=== PATIENT | male | born 1965 | race Hispanic/Latino ===

== ENCOUNTER 2018-03-06 17:35 | Emergency (ER) | payer BC, OTHER ==
[2018-03-06 18:19] VITALS: TEMP 98.4
[2018-03-06] MEDS ORDERED: Oxycodone/Acetaminophen 5/325 mg Tab PO STA (18:38)
--- NOTE | 2018-03-06 18:40 | ED PDOC ---
Lower Extremity Pain/Injury Chief Complaint (Provider): right toe pain History Per: Patient (52 y/o male h/o Gout here with right toe pain worsening after exercising 1 week ago. States he has been taking allopurinol and started indomethacin today at noon without improvement.) <Jennifer Steele - Last Filed: 03/06/18 19:22> <Luis Ramachandran - Last Filed: 03/06/18 21:46> Time Seen by Provider: 03/06/18 18:39 Chief Complaint (Nursing): Lower Extremity Problem/Injury Past Medical History Reviewed: Historical Data, Nursing Documentation, Vital Signs Vital Signs: Last Vital Signs Temp 98.4 F 03/06/18 18:12 Pulse 70 03/06/18 18:12 Resp 18 03/06/18 18:12 BP 206/114 H 03/06/18 18:12 Pulse Ox 99 03/06/18 18:12 - Medical History PMH: Asthma, HTN, Hypercholesterolemia - Family History Family History: States: CAD <Jennifer Steele - Last Filed: 03/06/18 19:22> Vital Signs: Last Vital Signs Temp 98.4 F 03/06/18 18:12 Pulse 70 03/06/18 18:12 Resp 18 03/06/18 18:12 BP 206/114 H 03/06/18 18:12 Pulse Ox 99 03/06/18 19:23 <Luis Ramachandran - Last Filed: 03/06/18 21:46> - Home Medications Home Medications: Ambulatory Orders Medication Instructions Recorded Albuterol Sulfate [Proair Hfa] 0.09 mg IH Q6H PRN #2 inh 04/27/15 Oseltamivir Phosphate [Tamiflu] 75 mg PO BID 5 Days capsule 04/27/15 Prednisone 20 mg PO BID 5 Days tablet 04/27/15 Indomethacin 50 mg PO TID #30 capsule 03/06/18 - Allergies Allergies/Adverse Reactions: Allergies Allergy/AdvReac Type Severity Reaction Status Date / Time No Known Allergies Allergy Verified 04/27/15 13:17 Review of Systems ROS Statement: Except As Marked, All Systems Reviewed And Found Negative <Jennifer Steele - Last Filed: 03/06/18 19:22> Physical Exam - Reviewed Nursing Documentation Reviewed: Yes Vital Signs Reviewed: Yes - Physical Exam Appears: Positive for: Well, Non-toxic, No Acute Distress Head Exam: Positive for: ATRAUMATIC, NORMAL INSPECTION, NORMOCEPHALIC Skin: Positive for: Normal Color, Warm, DRY Eye Exam: Positive for: EOMI, Normal appearance, PERRL ENT: Positive for: Normal ENT Inspection Neck: Positive for: Normal, Painless ROM Cardiovascular/Chest: Positive for: Regular Rate, Rhythm Respiratory: Positive for: CNT, Normal Breath Sounds Gastrointestinal/Abdominal: Positive for: Normal Exam, Soft Back: Positive for: Normal Inspection Extremity: Positive for: Normal ROM, Tenderness, Swelling (right MCP with moderate erythema noted.) Neurologic/Psych: Positive for: Alert, Oriented <Jennifer Steele - Last Filed: 03/06/18 19:22> - Laboratory Results Result Diagrams: 03/06/18 18:51 - ECG O2 Sat by Pulse Oximetry: 99 - Progress ED Course And Treament: XRY OF FOOT: NO FX PERCOCET 5/325 MG X 1 DOSE <Jennifer Steele - Last Filed: 03/06/18 19:22> - Laboratory Results Result Diagrams: 03/06/18 18:51 03/06/18 18:51 <Luis Ramachandran - Last Filed: 03/06/18 21:46> Medical Decision Making Medical Decision Making: Podiatry Resident indicated that aspiration was indicated and patient did not wish to undertake this procedure; pt will be discharged with a referral to Dr Chaudhry office and a rx for indomethicin; <Luis Ramachandran - Last Filed: 03/06/18 21:46> Disposition - Patient ED Disposition Is Patient to be Admitted: Transfer of Care - Disposition Disposition: Transfer of Care Disposition Time: 20:00 Patient Signed Over To: Luis Ramachandran Handoff Comments: PENDING PODIATRY EVAL <Jennifer tSeele - Last Filed: 03/06/18 19:22> - Patient ED Disposition Is Patient to be Admitted: No Discussed With : Devyn Chaudhry Doctor Will See Patient In The: Office Counseled Patient/Family Regarding: Studies Performed, Diagnosis, Need For Followup, Rx Given - Disposition Disposition: Routine/Home Disposition Time: 21:43 <Luis Ramachandran - Last Filed: 03/06/18 21:46> - Clinical Impression Clinical Impression: Foot pain, right, Elevated blood pressure reading - Disposition Referrals: Devyn Chaudhry DPM [Medical Doctor] - Condition: STABLE Additional Instructions: Follow up with Dr Chaudhry as indicated above in the next 2-3 days Prescriptions: Indomethacin 50 mg PO TID #30 capsule Instructions: Hypertension (ED) Forms: [facility] (Ch[place]an)
[2018-03-06] MEDS ORDERED: Oxycodone/Acetaminophen 5/325 mg Tab ONE (18:52)
[2018-03-06 18:55] LABS: BASO % 0.7 % (0.0-2.0); EOS # 0.2 K/uL (0.0-0.7); EOS % 2.2 % (0.0-4.0); HEMOGLOBIN 13.5 g/dL (12.0-18.0); LYMPH # 2.3 K/uL (1.0-4.3); LYMPH % 31.8 % (20.0-40.0); MEAN CELL VOLUME 90.1 fl (80.0-94.0); MEAN CORPUSCULAR HEMOGLOBIN 31.3 pg (27.0-31.0); MEAN CORPUSCULAR HGB CONC 34.8 g/dL (33.0-37.0); MEAN PLATELET VOLUME 8.5 fl (7.2-11.7); MONO # 0.7 K/uL (0.0-0.8); MONO % 9.2 % (0.0-10.0); NEUT # 4.1 K/uL (1.8-7.0); NEUT % 56.1 % (50.0-75.0); RBC 4.31 Mil/uL (4.40-5.90); WHITE BLOOD COUNT 7.2 K/uL (4.8-10.8)
[2018-03-06 19:35] LABS: BLOOD UREA NITROGEN 18 mg/dl (9-20); CALCIUM 9.1 mg/dL (8.4-10.2); GFR NON-AFRICAN AMERICAN > 60; URIC ACID 4.6 mg/Dl (3.5-8.5)
[2018-03-06 21:56] VITALS: BP 155/110; PULSE 61; RESP 14; O2SAT 98
--- NOTE | 2018-03-07 15:30 | RAD ---
Date of service: PROCEDURE: Right Foot Radiographs. HISTORY: foot pain COMPARISON: None. FINDINGS: BONES: No evidence of acute displaced fracture nor dislocation. Small posterior and plantar calcaneal enthesophytes former slightly larger than latter JOINTS: Moderate hallux valgus deformity with DJD 1st MTP joint and fairly significant overlying medial and dorsal soft tissue swelling... Multi articular degenerative osteoarthritis.. There also appears to be a very slight lateral subluxation of the distal phalanx with respect to the proximal phalanx 5th toe SOFT TISSUES: As above. No radiopaque foreign bodies. OTHER FINDINGS: None. IMPRESSION: Moderate hallux valgus deformity with DJD 1st MTP joint and fairly significant overlying soft tissue swelling as.
--- NOTE | 2018-03-07 18:31 | CP.PCM.CON ---
History of Present Illness - History of Present Illness History of Present Illness: Podiatry Consult Note- Dr. Chaudhry 52 year old male with PMH of HTN and gout seen and evaluated in the ED for right foot pain. Patient reports that his big toe is hot and swollen. Pain with pressure and when touched. Patient rates his pain severe. Reports that has been going on for a week. Reports inconsistently taking Indomecin for the last few days. His foot appears to be better however would get swollen after walking. Reports has been trying to move his big toe as much as he can to help with the pain. Reports no relief when doing so. Patient also mentions that during the holiday, he has consume more food and drinks. Also reports having gout to left 3rd toe with increase in soft tissue mass. Was told by a filling machine set up mechanic that it's gouty deposits. Denies nausea, fever, shortness of breath, chest pains or chills. Past Patient History - Infectious Disease Hx of Infectious Diseases: None - Past Social History Smoking Status: Never Smoked - CARDIAC Hx Hypercholesterolemia: Yes Hx Hypertension: Yes - PULMONARY Hx Asthma: Yes - PSYCHIATRIC Hx Substance Use: No - SURGICAL HISTORY Hx Surgeries: Yes Other/Comment: right hand, left ACL Meds Home Medications: Home Medication List Medication Instructions Recorded Confirmed Type Indomethacin 50 mg PO TID #30 capsule 03/06/18 Rx Allergies/Adverse Reactions: Allergies Allergy/AdvReac Type Severity Reaction Status Date / Time No Known Allergies Allergy Verified 04/27/15 13:17 Physical Exam - Constitutional Appears: Well, Non-toxic, No Acute Distress - Extremities Exam Extremities exam: Negative for: calf tenderness Additional comments: VASC: DP and PT 2/4 bilaterally, temperature gradient WNL, increase warmth to the 1st MPJ area, edema noted to medial forefoot ORTHO: moderate pain with palpation to the entire 1st hallux and MPJ, pain with 1st MPJ ROM, MM is 5/5 in all four compartments NEURO: gross and protective sensation intact DERM: increase swelling and warmth to 1st MPJ, no open lesions, no drainage, no streaking, no purulence, no odor, no abscess or fluctanance appreciated dorsum of left 3rd digit with increase in soft tissue and tophi deposits in soft tissue at the level of 3rd PIPJ, no open lesions, no pain with palpation - Neurological Exam Neurological exam: Alert, Oriented x3 Results - Vital Signs Recent Vital Signs: Last Vital Signs Temp 98.4 F 03/06/18 21:40 Pulse 61 03/06/18 21:40 Resp 14 03/06/18 21:40 BP 155/110 H 03/06/18 21:40 Pulse Ox 98 03/06/18 21:40 - Labs Result Diagrams: 03/06/18 18:51 03/06/18 18:51 Labs: Laboratory Results - last 24 hr 03/06/18 03/06/18 18:51 18:51 WBC 7.2 RBC 4.31 L Hgb 13.5 Hct 38.9 MCV 90.1 MCH 31.3 H MCHC 34.8 RDW 12.0 Plt Count 264 D MPV 8.5 Neut % (Auto) 56.1 Lymph % (Auto) 31.8 [place] % (Auto) 9.2 Eos % (Auto) 2.2 Baso % (Auto) 0.7 Neut # (Auto) 4.1 Lymph # (Auto) 2.3 [place] # (Auto) 0.7 Eos # (Auto) 0.2 Baso # (Auto) 0.0 Sodium 137 Potassium 4.1 Chloride 103 Carbon Dioxide 26 Anion Gap 12 BUN 18 Creatinine 0.9 Est GFR ( Amer) > 60 Est GFR (Non-Af Amer) > 60 Random Glucose 99 Uric Acid 4.6 Calcium 9.1 Assessment & Plan - Assessment and Plan (Free Text) Assessment: 52 year old male with PMH of HTN and gout with acute gouty exacerbation right bi g toe Plan: Patient seen and examined Discuss plan in detail with attending Dr. Chaudhry Labs, vitals, chart reviewed- afebrile, absent leukocytosis X-rays reviewed 1st MPJ to confirm suspicion of gouty 1st MPJ and rule out infectious disease, however patient refused joint aspiration Recommends Indomethacin, take as instructed Patient to follow with Dr. Chaudhry within 1 week Patient to WBAT in surgical shoe All questions/concerns addressed thank you for allowing us to participate in patient's care
== END 2018-03-06 21:50 | disposition home or self-care (01) ==
LOC: H.ER 17:35
DX: M19.071 Primary osteoarthritis, right ankle and foot (principal); I10 Essential (primary) hypertension; J45.909 Unspecified asthma, uncomplicated; Z82.49 Family history of ischemic heart disease and other diseases of the circulatory system; M10.9 Gout, unspecified

== ENCOUNTER 2018-06-18 09:06 | Inpatient (IN) | payer BC ==
[2018-06-18 09:09] VITALS: BMI 29.7
--- NOTE | 2018-06-18 09:34 | ED PDOC ---
Lower Extremity Pain/Injury Time Seen by Provider: 06/18/18 09:20 Chief Complaint (Nursing): Lower Extremity Problem/Injury Chief Complaint (Provider): Lower Extremity Problem/Injury History Per: Patient History/Exam Limitations: no limitations Onset/Duration Of Symptoms: Days (x6) Current Symptoms Are (Timing): Still Present Additional Complaint(s): Patient is a 52 y/o male with a PMHx of HTN, hypercholesterolemia, bursitis, gout, and asthma who presents to the ED for evaluation of right knee pain for the past six days. Patient complains of associated symptoms including immobility, nausea, radiation to the rest of the right leg, and night sweats. Patient states his symptoms only worsened with physical activity. Patient has been taking Advil with no relief. Patient's father, who is a cardiac surgeon, recommended temporarily taking Linezolid. PCP: None Provided Past Medical History Reviewed: Historical Data, Nursing Documentation, Vital Signs Vital Signs: Last Vital Signs Temp 98 F 06/18/18 09:07 Pulse 72 06/18/18 09:07 Resp 20 06/18/18 09:07 BP 165/105 H 06/18/18 09:07 Pulse Ox 97 06/18/18 09:07 - Medical History PMH: Asthma, HTN, Hypercholesterolemia Denies: Chronic Kidney Disease Other PMH: Bursitis and Gout - Surgical History Surgical History: No Surg Hx - Family History Family History: States: CAD - Home Medications Home Medications: Ambulatory Orders Medication Instructions Recorded Albuterol Sulfate [Proair Hfa] 0.09 mg IH Q6H PRN #2 inh 04/27/15 Albuterol HFA [Ventolin HFA 90 2 puff PO PRN PRN 06/18/18 mcg/actuation (8 g)] Allopurinol [Zyloprim] 1 tab PO DAILY 06/18/18 Omeprazole Magnesium [Prilosec Otc] 1 tab PO DAILY 06/18/18 - Allergies Allergies/Adverse Reactions: Allergies Allergy/AdvReac Type Severity Reaction Status Date / Time No Known Allergies Allergy Verified 04/27/15 13:17 Review of Systems ROS Statement: Except As Marked, All Systems Reviewed And Found Negative Constitutional: Positive for: Sweats. Negative for: Fever Gastrointestinal: Positive for: Nausea Musculoskeletal: Positive for: Leg Pain (right), Other (right knee pain) Skin: Positive for: Other (redness and swelling to right knee) Physical Exam - Reviewed Nursing Documentation Reviewed: Yes - Physical Exam Appears: Positive for: In Acute Distress (painful) Head Exam: Positive for: ATRAUMATIC, NORMAL INSPECTION, NORMOCEPHALIC Skin: Positive for: Warm Eye Exam: Positive for: EOMI, Normal appearance, PERRL Neck: Positive for: Normal, Painless ROM, Supple Cardiovascular/Chest: Positive for: Regular Rate, Rhythm. Negative for: Murmur Respiratory: Positive for: Normal Breath Sounds. Negative for: Respiratory Distress Pulses-Dorsalis Pedis (L): 2+ Pulses-Dorsalis Pedis (R): 2+ Extremity: Positive for: Capillary Refill (less than 2 seconds), Swelling (redness and warmth to right knee), Other (sensation to touch intact). Negative for: Normal ROM (limited ROM of right knee secondary to pain), Pedal Edema Neurological/Psych: Positive for: Alert, Oriented (x3) - Laboratory Results Result Diagrams: 06/18/18 10:04 06/18/18 10:04 - ECG O2 Sat by Pulse Oximetry: 97 (RA) Pulse Ox Interpretation: Normal Medical Decision Making Medical Decision Making: Time: 925 Impression: Knee Pain DDx includes but not limited to gout and septic arthritis Plan: CMP Uric Acid CBC PTT Prothrombin Time Knee 3 Views RT [Rad] Blood Culture CT Knee w/o Contrast Time: 1010 FINDINGS: BONES: No evidence of acute displaced fracture nor dislocation. JOINTS: Small medium-sized anterior superior patella enthesophyte with tiny anterior inferior patella enthesophyte formation JOINT EFFUSION: Small suprapatellar joint effusion. OTHER FINDINGS: There is also mild anterior- prepatellar soft tissue swelling IMPRESSION: No evidence of acute displaced fracture nor dislocation. Small suprapatellar joint effusion. [id number] anterior superior patella enthesophyte formation. Mild anterior-prepatellar soft tissue swelling 11:[address] Chung, recommends admission for OR. 13:[address] Chung in ED, discontinue Abx, NPO. Scribe Attestation: Documented by Gus Herrera, acting as a scribe Sravanthi Oneill MD. Provider Scribe Attestation: All medical record entries made by the Scribe were at my direction and personally dictated by me. I have reviewed the chart and agree that the record accurately reflects my personal performance of the history, physical exam, m edical decision making, and the department course for this patient. I have also personally directed, reviewed, and agree with the discharge instructions and disposition. Disposition - Clinical Impression Clinical Impression: Septic joint - Patient ED Disposition Is Patient to be Admitted: Yes - Disposition Disposition Time: 12:14 Condition: STABLE - Pt Status Changed To: Hospital Disposition Of: Inpatient - Admit Certification Admit to Inpatient:: After my assessment, the patient will require hospitalization for at least two midnights. This is because of the severity of symptoms shown, intensity of services needed, and/or the medical risk in this patient being treated as an outpatient. - POA Present On Arrival: None
--- NOTE | 2018-06-18 10:14 | RAD ---
Date of service: 06/18/2018 PROCEDURE: Right Knee Radiographs. HISTORY: Pain, swelling COMPARISON: None. TECHNIQUE: 2 views obtained. FINDINGS: BONES: No evidence of acute displaced fracture nor dislocation. JOINTS: Small medium-sized anterior superior patella enthesophyte with tiny anterior inferior patella enthesophyte formation JOINT EFFUSION: Small suprapatellar joint effusion. OTHER FINDINGS: There is also mild anterior- prepatellar soft tissue swelling IMPRESSION: No evidence of acute displaced fracture nor dislocation. Small suprapatellar joint effusion. Bzdnc-ubvltn-[id number] anterior superior patella enthesophyte formation. Mild anterior-prepatellar soft tissue swelling
[2018-06-18 10:30] LABS: ALB/GLOB RATIO 1.6 (1.0-2.1); ALBUMIN 4.5 g/dL (3.5-5.0); ALT/SGPT 49 U/L (21-72); AST/SGOT 39 U/L (17-59); BLOOD UREA NITROGEN 17 mg/dl (9-20); CALCIUM 9.2 mg/dL (8.4-10.2); GFR NON-AFRICAN AMERICAN > 60; PROTHROMBIN TIME 11.5 Seconds (9.8-13.1); URIC ACID 5.6 mg/Dl (3.5-8.5)
[2018-06-18 10:33] LABS: PARTIAL THROMBOPLASTIN TIME 31.6 Seconds (25.6-37.1)
[2018-06-18 10:36] LABS: BASO % 0.5 % (0.0-2.0); EOS # 0.2 K/uL (0.0-0.7); EOS % 2.8 % (0.0-4.0); LYMPH # 1.3 K/uL (1.0-4.3); LYMPH % 20.8 % (20.0-40.0); MEAN CORPUSCULAR HEMOGLOBIN 31.2 pg (27.0-31.0); MONO # 0.6 K/uL (0.0-0.8); MONO % 9.7 % (0.0-10.0); NEUT # 4.3 K/uL (1.8-7.0); NEUT % 66.2 % (50.0-75.0); RBC 4.5 Mil/uL (4.40-5.90); RED CELL DISTRIBUTION WIDTH 13.7 % (11.5-14.5); WHITE BLOOD COUNT 6.5 K/uL (4.8-10.8)
--- NOTE | 2018-06-18 12:26 | CP.PCM.HP ---
<Slime Hirsch - Last Filed: 06/18/18 14:43> History of Present Illness - History of Present Illness History of Present Illness: 52 yo male with history of Gout and HTN presents to [facility] with complaint of right knee swelling and pain. Started last Tuesday (7 days prior to admission), radiates down the leg. No alleviating factors. Reports it is worse with activity. Associated with one episode of NBNB vomitus on Tuesday and chills last night. Reports 2 weeks ago he jumped on his bed with both knees but did not sustain any injuries at that time. His father, a physician, prescribed him Zyvox 600mg- he reports he took a total of two pills yesterday. Denies fevers, dizziness, chest pain, shortness of breath, nausea, abdominal pain, dysuria, frequency and urgency, weakness or tingling. ROS: negative except for stated above. 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 Denies smoking history. Reports He dr inks alcohol- about 3 glasses on Tuesday and 3 glasses on Tuesday. ED: 98F; HR: 72 ; BP: 165/105; O2 saturation: 97% room air CMP: 136/ 4.1 ; 102 / 26 ; 17 /0.9 < 104 ; Total bili: 1.4 ; AST/ALT: 39/49 ; Alk Phos: 74 Uric Acid CBC: 6.5 > 14.0/40.1 < 208 PT/INR: 11.5 / 1.0 Blood Culture- pending CT Knee w/o Contrast: pending Right Knee Xray: No evidence of acute displaced fracture nor dislocation. Small suprapatellar joint effusion. Srxtu-hznnpt-yraar anterior superior patella enthesophyte formation. Mild anterior-prepatellar soft tissue swelling. Present on Admission - Present on Admission Any Indicators Present on Admission: No Past Patient History - Infectious Disease Hx of Infectious Diseases: None - Past Social History Smoking Status: Never Smoked - CARDIAC Hx Hypercholesterolemia: Yes Hx Hypertension: Yes - PULMONARY Hx Asthma: Yes - NEUROLOGICAL Hx Neurological Disorder: No - HEENT Hx HEENT Problems: No - RENAL Hx Chronic Kidney Disease: No - ENDOCRINE/METABOLIC Hx Endocrine Disorders: No - HEMATOLOGICAL/ONCOLOGICAL Hx Blood Disorders: No - INTEGUMENTARY Hx Dermatological Problems: No - MUSCULOSKELETAL/RHEUMATOLOGICAL Hx Musculoskeletal Disorders: Yes Hx Gout: Yes Other/Comment: Versait[employer] - GASTROINTESTINAL Hx Gastrointestinal Disorders: No - GENITOURINARY/GYNECOLOGICAL Hx Genitourinary Disorders: No - PSYCHIATRIC Hx Psychophysiologic Disorder: No Hx Substance Use: No - SURGICAL HISTORY Hx Surgeries: Yes Other/Comment: right hand, left ACL - ANESTHESIA Hx Anesthesia: Yes Hx Anesthesia Reactions: No Hx Malignant Hyperthermia: No Meds Allergies/Adverse Reactions: Allergies Allergy/AdvReac Type Severity Reaction Status Date / Time No Known Allergies Allergy Verified 04/27/15 13:17 Physical Exam - Constitutional Appears: Non-toxic, No Acute Distress - Eye Exam Eye Exam: Normal appearance - ENT Exam ENT Exam: Mucous Membranes Moist - Respiratory Exam Respiratory Exam: Clear to Auscultation Bilateral, NORMAL BREATHING PATTERN. absent: Accessory Muscle Use, Chest Wall Tenderness, Decreased Breath Sounds, Prolonged Expiratory Phase, Rales, Rhonchi, Wheezes, Respiratory Distress, Stridor - Cardiovascular Exam Cardiovascular Exam: REGULAR RHYTHM, +S1, +S2 - GI/Abdominal Exam GI & Abdominal Exam: Normal Bowel Sounds, Soft. absent: Diminished Bowel Sounds, Distended, Firm, Guarding, Rebound, Rigid, Tenderness - Extremities Exam Extremities exam: Positive for: joint swelling (Right knee erythematous, warm to touch and swollen; non-tender to touch), normal capillary refill, pedal pulses present (+2 dorsalis pedis and tibialis posterior pulses present bilaterally. ). Negative for: calf tenderness, pedal edema, tenderness - Back Exam Back exam: NORMAL INSPECTION - Neurological Exam Neurological exam: Alert, Oriented x3 - Psychiatric Exam Psychiatric exam: Normal Affect, Normal Mood - Skin Skin Exam: Dry, Intact, Normal Color, Warm Results - Vital Signs Recent Vital Signs: Last Vital Signs Temp 98 F 06/18/18 09:07 Pulse 72 06/18/18 09:07 Resp 20 06/18/18 09:07 BP 165/105 H 06/18/18 09:07 Pulse Ox 97 06/18/18 11:17 - Labs Result Diagrams: 06/18/18 10:04 06/18/18 10:04 Labs: Laboratory Results - last 24 hr 06/18/18 06/18/18 06/18/18 10:04 10:04 10:04 WBC 6.5 RBC 4.50 Hgb 14.0 Hct 40.1 MCV 89.0 MCH 31.2 H MCHC 35.0 RDW 13.7 Plt Count 208 MPV 9.0 Neut % (Auto) 66.2 Lymph % (Auto) 20.8 [place] % (Auto) 9.7 Eos % (Auto) 2.8 Baso % (Auto) 0.5 Neut # (Auto) 4.3 Lymph # (Auto) 1.3 [place] # (Auto) 0.6 Eos # (Auto) 0.2 Baso # (Auto) 0.0 ESR PT 11.5 INR 1.0 APTT 31.6 Sodium 136 Potassium 4.1 Chloride 102 Carbon Dioxide 26 Anion Gap 12 BUN 17 Creatinine 0.9 Est GFR ( Amer) > 60 Est GFR (Non-Af Amer) > 60 Random Glucose 104 Uric Acid 5.6 Calcium 9.2 Total Bilirubin 1.4 H AST 39 ALT 49 Alkaline Phosphatase 74 Total Protein 7.3 Albumin 4.5 Globulin 2.8 Albumin/Globulin Ratio 1.6 06/18/18 11:33 WBC RBC Hgb Hct MCV MCH MCHC RDW Plt Count MPV Neut % (Auto) Lymph % (Auto) [place] % (Auto) Eos % (Auto) Baso % (Auto) Neut # (Auto) Lymph # (Auto) [place] # (Auto) Eos # (Auto) Baso # (Auto) ESR 22 H PT INR APTT Sodium Potassium Chloride Carbon Dioxide Anion Gap BUN Creatinine Est GFR ( Amer) Est GFR (Non-Af Amer) Random Glucose Uric Acid Calcium Total Bilirubin AST ALT Alkaline Phosphatase Total Protein Albumin Globulin Albumin/Globulin Ratio Assessment & Plan (1) Swelling of right knee joint Status: Acute (2) Hypertension Status: Acute (3) DVT prophylaxis Status: Acute (4) Full code status Status: Acute - Assessment and Plan (Free Text) Assessment: 52 yo male with history of Gout and HTN presents to [facility] with complaint of right knee swelling and pain admitted to rule out septic arthritis. Plan: 1. Right knee swelling - Rule out Septic arthritis vs. Gout - Admit to Med/surg - Afebrile - no leukocytosis - Orthopedic consult - Recommendations appreciated - s/p Ceftriaxone and Vancomycin - s/p 2 doses of Zyvox 600mg PO yesterday - F/U CRP - ESR 22 2. Hypertension - continue to monitor - Norvasc 5mg 3. DVT prophylaxis SCD's 4. Full code Case d/w Dr. Mejia <Michael Mejia D - Last Filed: 06/18/18 15:23> Results - Vital Signs Recent Vital Signs: Last Vital Signs Temp 98 F 06/18/18 14:41 Pulse 72 06/18/18 14:41 Resp 20 06/18/18 14:41 BP 165/105 H 06/18/18 14:41 Pulse Ox 97 06/18/18 14:10 - Labs Result Diagrams: 06/18/18 10:04 06/18/18 10:04 Labs: Laboratory Results - last 24 hr 06/18/18 06/18/18 06/18/18 10:04 10:04 10:04 WBC 6.5 RBC 4.50 Hgb 14.0 Hct 40.1 MCV 89.0 MCH 31.2 H MCHC 35.0 RDW 13.7 Plt Count 208 MPV 9.0 Neut % (Auto) 66.2 Lymph % (Auto) 20.8 [place] % (Auto) 9.7 Eos % (Auto) 2.8 Baso % (Auto) 0.5 Neut # (Auto) 4.3 Lymph # (Auto) 1.3 [place] # (Auto) 0.6 Eos # (Auto) 0.2 Baso # (Auto) 0.0 ESR PT 11.5 INR 1.0 APTT 31.6 Sodium 136 Potassium 4.1 Chloride 102 Carbon Dioxide 26 Anion Gap 12 BUN 17 Creatinine 0.9 Est GFR ( Amer) > 60 Est GFR (Non-Af Amer) > 60 Random Glucose 104 Uric Acid 5.6 Calcium 9.2 Total Bilirubin 1.4 H AST 39 ALT 49 Alkaline Phosphatase 74 Total Protein 7.3 Albumin 4.5 Globulin 2.8 Albumin/Globulin Ratio 1.6 06/18/18 11:33 WBC RBC Hgb Hct MCV MCH MCHC RDW Plt Count MPV Neut % (Auto) Lymph % (Auto) [place] % (Auto) Eos % (Auto) Baso % (Auto) Neut # (Auto) Lymph # (Auto) [place] # (Auto) Eos # (Auto) Baso # (Auto) ESR 22 H PT INR APTT Sodium Potassium Chloride Carbon Dioxide Anion Gap BUN Creatinine Est GFR ( Amer) Est GFR (Non-Af Amer) Random Glucose Uric Acid Calcium Total Bilirubin AST ALT Alkaline Phosphatase Total Protein Albumin Globulin Albumin/Globulin Ratio Attending/Attestation - Attestation I have personally seen and examined this patient.: Yes I have fully participated in the care of the patient.: Yes I have reviewed all pertinent clinical information: Yes Notes (Text): 06/18/18 15:23 Patient seen and examined with resident. Cased discussed and agreed with assessment and plan of management.
[2018-06-18] MEDS ORDERED: Vancomycin 1 g Inj ONE (12:51)
--- NOTE | 2018-06-18 14:23 | CP.PCM.CON ---
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 Pt pre sents to ER at [facility] with marked erythema anterior aspect R knee/ Pt with tense effusion, and hx of shaking chills at home. Pr currently afebrile, but with svere poain andrestricted ROM R knee. Pt with balottable patella- - swelling not buirsal, but intraraticular Increasing pain awith ROM passive or active Right knee Past Patient History - Infectious Disease Hx of Infectious Diseases: None - Past Social History Smoking Status: Never Smoked - CARDIAC Hx Hypercholesterolemia: Yes Hx Hypertension: Yes - PULMONARY Hx Asthma: Yes - NEUROLOGICAL Hx Neurological Disorder: No - HEENT Hx HEENT Problems: No - RENAL Hx Chronic Kidney Disease: No - ENDOCRINE/METABOLIC Hx Endocrine Disorders: No - HEMATOLOGICAL/ONCOLOGICAL Hx Blood Disorders: No - INTEGUMENTARY Hx Dermatological Problems: No - MUSCULOSKELETAL/RHEUMATOLOGICAL Hx Musculoskeletal Disorders: Yes Hx Gout: Yes Other/Comment: Vers[employer] - GASTROINTESTINAL Hx Gastrointestinal Disorders: No - GENITOURINARY/GYNECOLOGICAL Hx Genitourinary Disorders: No - PSYCHIATRIC Hx Psychophysiologic Disorder: No Hx Substance Use: No - SURGICAL HISTORY Hx Surgeries: Yes Other/Comment: right hand, left ACL - ANESTHESIA Hx Anesthesia: Yes Hx Anesthesia Reactions: No Hx Malignant Hyperthermia: No Meds Allergies/Adverse Reactions: Allergies Allergy/AdvReac Type Severity Reaction Status Date / Time No Known Allergies Allergy Verified 04/27/15 13:17 - Medications Medications: Current Medications Amlodipine Besylate (Norvasc) 5 mg PO DAILY [facility] Ibuprofen (Motrin Tab) 400 mg PO Q6H PRN PRN Reason: Pain, moderate (4-7) Pantoprazole Sodium (Protonix Ec Tab) 40 mg PO DAILY [facility] Physical Exam - Additional Findings Additional findings: Physical Exam Systemic exam- HEENT - wnl chest and lungs- clear to A+P Cardiac- S1/S2 NSR / no murmurs rubs thrills abdoment- beig [place] physiologic Musculoskekltal stance/gait- defrred ROM R knee markedly restricted( only 15 degrees active motion) passive rOM painful and restricted + erythema Right knee Results - Vital Signs Recent Vital Signs: Last Vital Signs Temp 98 F 06/18/18 09:07 Pulse 72 04/28/19 09:07 Resp 20 06/18/18 09:07 BP 165/105 H 06/18/18 09:07 Pulse Ox 97 06/18/18 14:10 - Labs Result Diagrams: 06/18/18 10:04 06/18/18 10:04 Labs: Laboratory Results - last 24 hr 06/18/18 06/18/18 06/18/18 10:04 10:04 10:04 WBC 6.5 RBC 4.50 Hgb 14.0 Hct 40.1 MCV 89.0 MCH 31.2 H MCHC 35.0 RDW 13.7 Plt Count 208 MPV 9.0 Neut % (Auto) 66.2 Lymph % (Auto) 20.8 [place] % (Auto) 9.7 Eos % (Auto) 2.8 Baso % (Auto) 0.5 Neut # (Auto) 4.3 Lymph # (Auto) 1.3 [place] # (Auto) 0.6 Eos # (Auto) 0.2 Baso # (Auto) 0.0 ESR PT 11.5 INR 1.0 APTT 31.6 Sodium 136 Potassium 4.1 Chloride 102 Carbon Dioxide 26 Anion Gap 12 BUN 17 Creatinine 0.9 Est GFR ( Amer) > 60 Est GFR (Non-Af Amer) > 60 Random Glucose 104 Uric Acid 5.6 Calcium 9.2 Total Bilirubin 1.4 H AST 39 ALT 49 Alkaline Phosphatase 74 Total Protein 7.3 Albumin 4.5 Globulin 2.8 Albumin/Globulin Ratio 1.6 06/18/18 11:33 WBC RBC Hgb Hct MCV MCH MCHC RDW Plt Count MPV Neut % (Auto) Lymph % (Auto) Wil[place]ger % (Auto) Eos % (Auto) Baso % (Auto) Neut # (Auto) Lymph # (Auto) [place]ger # (Auto) Eos # (Auto) Baso # (Auto) ESR 22 H PT INR APTT Sodium Potassium Chloride Carbon Dioxide Anion Gap BUN Creatinine Est GFR ( Amer) Est GFR (Non-Af Amer) Random Glucose Uric Acid Calcium Total Bilirubin AST ALT Alkaline Phosphatase Total Protein Albumin Globulin Albumin/Globulin Ratio - Impressions Impression: Xray- + forf effusion/ + for arthritis medial/patellofemoral compartments CT scan- confirmatory Assessment & Plan - Assessment and Plan (Free Text) Assessment: A- R/O septic R knee R/O gouty arthropathy Plan: Plan- surgical arthroscopy/ overnight admission pros/cons risks and benfits of proposed treatment plan (admission/surgical arthroscopy) discussed at length with pt- possibility of mechanical failure/infection/thromoboembolic disease discussed at length --informed consent obtaine. Pt discussed treatment plan with his father who is a physician No promises or guarantees
--- NOTE | 2018-06-18 14:42 | CT ---
Date of service: 06/18/2018 PROCEDURE: CT of the right knee HISTORY: Knee edema, pain COMPARISON: Comparison made with concurrent radiographs of the right knee. TECHNIQUE: Contiguous axial images of the right knee were obtained. Coronal and sagittal reformats were generated. Radiation dose: Total exam DLP = 318.63 mGy-cm. This CT exam was performed using one or more of the following dose reduction techniques: Automated exposure control, adjustment of the mA and/or kV according to patient size, and/or use of iterative reconstruction technique. FINDINGS: BONES: No evidence of acute displaced fracture nor dislocation. The osseous structures appear intact. RIGHT HIP JOINT: Joint spaces preserved with no significant osteoarthritis. Small anterior superior patella enthesophyte. SOFT TISSUES: Small of right-sided joint effusion. There are infiltration changes within the anterior and anterolateral soft tissues of the distal femur extending to the upper proximal tibia/fibula level.. Amorphous areas of soft tissue calcifications seen adjacent to the lateral margin of the patella. IMPRESSION: No acute fractures. Small joint effusion with mild to moderate anterior and anterolateral soft tissue swelling extending from the distal femur to the proximal tibia/fibular region Amorphous areas of soft tissue calcifications seen adjacent to the lateral margin of the patella.
[2018-06-18] MEDS ORDERED: Pantoprazole 40 mg EC Tab PO ONE (15:29)
[2018-06-18] MEDS: Pantoprazole 40 mg EC Tab PO SCH (15:34)
[2018-06-18] MEDS ORDERED: Albuterol HFA 90 mcg/actuation (8 g) INH PRN (20:00)
[2018-06-19 00:07] LABS: URINE BILIRUBIN NEGATIVE (NEGATIVE); URINE BLOOD NEGATIVE (NEGATIVE); URINE CLARITY CLEAR (Clear); URINE COLOR STRAW (YELLOW); URINE GLUCOSE (UA) NEG (NEGATIVE); URINE LEUKOCYTE ESTERASE NEG Leu/uL (Negative); URINE PROTEIN NEGATIVE (NEGATIVE); URINE UROBILINOGEN 0.2-1.0 mg/dL (0.2-1.0)
[2018-06-19 06:56] LABS: BASO % 0.6 % (0.0-2.0); EOS # 0.2 K/uL (0.0-0.7); EOS % 2.8 % (0.0-4.0); LYMPH # 1.7 K/uL (1.0-4.3); LYMPH % 25.8 % (20.0-40.0); MEAN CELL VOLUME 89.8 fl (80.0-94.0); MEAN CORPUSCULAR HEMOGLOBIN 30.5 pg (27.0-31.0); MEAN PLATELET VOLUME 9.1 fl (7.2-11.7); MONO # 0.7 K/uL (0.0-0.8); NEUT % 59.8 % (50.0-75.0); NRBC % 0.1 % (0.0-0.0); RBC 4.58 Mil/uL (4.40-5.90); RED CELL DISTRIBUTION WIDTH 13.2 % (11.5-14.5); WHITE BLOOD COUNT 6.6 K/uL (4.8-10.8)
[2018-06-19 07:08] LABS: BLOOD UREA NITROGEN 17 mg/dl (9-20); CALCIUM 8.8 mg/dL (8.4-10.2); GFR NON-AFRICAN AMERICAN > 60
[2018-06-19] MEDS ORDERED: MethylPREDNISolone Depo 40 mg/ml Inj ONE (07:25)
[2018-06-19] MEDS ORDERED: Bupivacaine 0.5% Inj(30mL) ONE (07:25)
[2018-06-19] MEDS ORDERED: Lidocaine 1% Inj (20ml) ONE (07:25)
[2018-06-19] MEDS ORDERED: EPINEPHrine 1 mg/ml (1:1000) Inj ONE (07:26)
[2018-06-19] MEDS: Pantoprazole 40 mg EC Tab PO SCH (08:06)
--- NOTE | 2018-06-19 08:56 | CP.PCM.PN ---
<Slime Hirsch - Last Filed: 06/19/18 10:40> Subjective - Date & Time of Evaluation Date of Evaluation: 06/19/18 Time of Evaluation: 10:00 - Subjective Subjective: Patient seen and examined at bedside. Reports mild pain when he tried to bend the right knee. Denies chest pain, shortness of breath, nausea, abdominal pain, diarrhea. Afebrile. Patient to go for arthroscopy today with Ortho. Objective - Vital Signs/Intake and Output Vital Signs (last 24 hours): Temp Pulse Resp BP Pulse Ox 98 F 60 18 127/69 97 06/19/18 06:13 06/19/18 06:13 06/19/18 06:13 06/19/18 06:13 06/19/18 06:13 - Medications Medications: Current Medications Acetaminophen (Tylenol 325mg Tab) 325 mg PO Q6 PRN PRN Reason: Other Last Admin: 06/18/18 23:27 Dose: 325 mg Albuterol (Ventolin Hfa 90 Mcg/Actuation (8 G)) 1 puff INH RQ6 PRN PRN Reason: Shortness of Breath Allopurinol (Zyloprim) 300 mg PO DAILY [facility] Last Admin: 06/19/18 08:07 Dose: Not Given Amlodipine Besylate (Norvasc) 5 mg PO DAILY [facility] Last Admin: 06/19/18 08:07 Dose: Not Given Vancomycin HCl 1 gm/ Sodium (Chloride) 250 mls @ 166.667 mls/hr IVPB Q12 [facility]; Protocol Last Admin: 06/18/18 21:12 Dose: 166.667 mls/hr Lorazepam (Ativan) 1 mg PO HS PRN PRN Reason: Insomnia Last Admin: 06/18/18 21:11 Dose: 1 mg Pantoprazole Sodium (Protonix Ec Tab) 40 mg PO DAILY [facility] Last Admin: 06/19/18 08:06 Dose: Not Given - Labs Labs: 06/19/18 05:55 06/19/18 05:55 PT 11.5 Seconds (9.8-13.1) 06/18/18 10:04 INR 1.0 06/18/18 10:04 APTT 31.6 Seconds (25.6-37.1) 06/18/18 10:04 - Constitutional Appears: Non-toxic, No Acute Distress - Eye Exam Eye Exam: Normal appearance - ENT Exam ENT Exam: Mucous Membranes Moist - Respiratory Exam Respiratory Exam: Clear to Ausculation Bilateral, NORMAL BREATHING PATTERN. absent: Accessory Muscle Use, Chest Wall Tenderness, Decreased Breath Sounds, Prolonged Expiratory Phase, Rales, Rhonchi, Wheezes, Respiratory Distress, Stridor - Cardiovascular Exam Cardiovascular Exam: REGULAR RHYTHM, RRR, +S1, +S2 - GI/Abdominal Exam GI & Abdominal Exam: Soft, Normal Bowel Sounds. absent: Distended, Firm, Guarding, Rigid, Tenderness, Hernia, Rebound - Extremities Exam Extremities Exam: Joint Swelling (Right knee swelling. ), Normal Capillary Refill, Tenderness (Tenderness to palpation on right knee. Warm to touch. Erythematous and swollen. ). absent: Calf Tenderness, Pedal Edema - Neurological Exam Neurological Exam: Alert, Awake, Oriented x3 - Psychiatric Exam Psychiatric exam: Normal Affect, Normal Mood - Skin Skin Exam: Dry, Intact, Normal Color, Warm Assessment and Plan (1) Swelling of right knee joint Status: Acute (2) Hypertension Status: Acute (3) DVT prophylaxis Status: Acute (4) Full code status Status: Acute - Assessment and Plan (Free Text) Assessment: 52 yo male with history of Gout and HTN presents to [facility] with complaint of right knee swelling and pain admitted to rule out septic arthritis vs gout vs. trauma. Plan: 1. Right knee swelling - Rule out Septic arthritis vs. Gout vs. trauma - Orthopedic consult - Recommendations appreciated- patient for OR today. - Vancomycin day 2 and - s/p 2 doses of Zyvox 600mg PO day prior to admission - MRI: Partial tear or sprain of ACL and LCL; partial tear of distal qudraceps tendon; medial meniscal tear posterior horn; moderate suprapatellar bursa effusion and medial popliteal cyst; prominent david lateral knee soft tissue ed cosme. 2. Hypertension - continue to monitor - Norvasc 5mg 3. DVT prophylaxis SCD's 4. Full code <Kayleigh Edward - Last Filed: 06/19/18 17:42> Objective - Vital Signs/Intake and Output Vital Signs (last 24 hours): Temp Pulse Resp BP Pulse Ox 97.9 F 62 20 149/97 H 95 06/19/18 17:16 06/19/18 17:16 06/19/18 17:16 06/19/18 17:16 06/19/18 17:16 Intake and Output: 06/19/18 06/19/18 06:59 18:59 Intake Total 1000 Balance 1000 - Medications Medications: Current Medications Acetaminophen (Tylenol 325mg Tab) 650 mg PO Q4 PRN PRN Reason: Fever 101 degrees fahrenheit Albuterol (Ventolin Hfa 90 Mcg/Actuation (8 G)) 1 puff INH RQ6 PRN PRN Reason: Shortness of Breath Allopurinol (Zyloprim) 300 mg PO DAILY [facility] Last Admin: 06/19/18 08:07 Dose: Not Given Amlodipine Besylate (Norvasc) 5 mg PO DAILY [facility] Last Admin: 06/19/18 08:07 Dose: Not Given Hydromorphone HCl (Dilaudid) 0.5 mg IVP Q15MIN PRN PRN Reason: Pain, moderate (4-7) Last Admin: 06/19/18 16:15 Dose: 0.5 mg Vancomycin HCl 1 gm/ Sodium (Chloride) 250 mls @ 166.667 mls/hr IVPB Q12 [facility]; Protocol Stop: 06/20/18 10:29 Lorazepam (Ativan) 1 mg PO HS PRN PRN Reason: Insomnia Last Admin: 06/18/18 21:11 Dose: 1 mg Morphine Sulfate (Morphine) 2 mg IVP Q4 PRN PRN Reason: Pain, severe (8-10) Ondansetron HCl (Zofran Inj) 4 mg IVP ONCE PRN PRN Reason: Nausea/Vomiting Oxycodone/Acetaminophen (Percocet 5/325 Mg Tab) 2 tab PO Q4 PRN PRN Reason: Pain, moderate (4-7) Stop: 06/22/18 12:12 Pantoprazole Sodium (Protonix Ec Tab) 40 mg PO DAILY [facility] Last Admin: 06/19/18 08:06 Dose: Not Given - Labs Labs: 06/19/18 05:55 06/19/18 05:55 PT 11.5 Seconds (9.8-13.1) 06/18/18 10:04 INR 1.0 06/18/18 10:04 APTT 31.6 Seconds (25.6-37.1) 06/18/18 10:04 Attending/Attestation - Attestation I have personally seen and examined this patient.: Yes I have fully participated in the care of the patient.: Yes I have reviewed all pertinent clinical information, including history, physical exam and plan: Yes Notes (Text): Right Knee Pain and Swelling HTN Gout ACL , Medial Meniscal, Quadriceps Tendon Tear -MRI of the knee : 1. Partial tear or sprain ACL and LCL as per above. 2. A partial tear of the distal quadriceps tendon is appreciated at the midline with medial and lateral fibers close to its insertion (see series 4, image 22 and series 7, image 6). 3. Medial meniscal tear posterior horn. 4. Moderate suprapatellar bursa effusion and medial popliteal cyst. 5. Prominent david lateral knee soft tissue edema. - Plan for Arthroscopic Surgery today by DR Chung -Synovial fluid analysis - cont Allopurinol -cont antihypertensive meds -Pain mgt -Physical therapy consult - DVT proph post op
[2018-06-19] MEDS ORDERED: FLUTICASONE PROPION/SALMETEROL 55-14 INHALER IH ONE (09:00)
--- NOTE | 2018-06-19 09:30 | MRI ---
Date of service: 06/19/2018 PROCEDURE: MRI Right Knee HISTORY: Pain. COMPARISON: Right knee radiographs and CT right knee, both from 06/18/2018. TECHNIQUE: Multiecho multiplanar sequences were performed through the right knee. FINDINGS: ANTERIOR CRUCIATE LIGAMENT:: Moderate sprain or partial tear. No complete tear appreciated. POSTERIOR CRUCIATE LIGAMENT:: No intrinsic signal abnormality identified. MEDIAL MENISCUS:: A small inferior articular tear of the posterior horn is identified with remainder intact. LATERAL MENISCUS:: No acute tear identified. MEDIAL COLLATERAL LIGAMENT:: No intrinsic signal abnormality identified. LATERAL COLLATERAL LIGAMENT COMPLEX:: A sprain or partial tear lateral collateral ligament medial fibers is suggested. Full-thickness tear grossly evident. QUADRICEPS TENDON:: There is a partial tear anterior and mid fibers of the distal quadriceps tendon less than 1 cm to the insertion. These are midline in location the majority of the tendon intact without acute tear identified PATELLAR TENDON:: Prominent tendinosis favored over longitudinal tear distal patellar tendon. CARTILAGE:: Moderate patello femoral chondromalacia is appreciated based on heterogeneous signal changes and limited volume loss. Articular cortical sclerosis accompanies these findings. JOINT FLUID:: There is a moderate suprapatellar bursa effusion identified without fluid-fluid level to suggest fat or hemarthrosis. OSSEOUS STRUCTURES:: No fracture or bone contusion identified. OTHER FINDINGS: Evaluation of the extracapsular soft tissues reveals prominent anterior and lateral knee superficial and subcutaneous soft tissue edema as well as a moderate sized medial popliteal cyst measuring 1.9 x 4.2 x 7.6 cm (transverse by anteroposterior by superoinferior dimensions). IMPRESSION: 1. Partial tear or sprain ACL and LCL as per above. 2. A partial tear of the distal quadriceps tendon is appreciated at the midline with medial and lateral fibers close to its insertion (see series 4, image 22 and series 7, image 6). 3. Medial meniscal tear posterior horn. 4. Moderate suprapatellar bursa effusion and medial popliteal cyst. 5. Prominent david lateral knee soft tissue edema.
[2018-06-19] MEDS ORDERED: Lidocaine 4% (Laryng-O-Jet) Kit MM ONE (09:49)
[2018-06-19] MEDS ORDERED: Propofol 10 mg/ml Inj (20 ML) ONE (09:49)
[2018-06-19] MEDS ORDERED: Rocuronium 10 mg/ml (5 ml) ONE ×3 (09:49→13:58)
[2018-06-19] MEDS ORDERED: Succinylcholine Chloride 20 mg/ml Syr (5 ml) IV ONE (09:49)
[2018-06-19] MEDS ORDERED: Phenylephrine 10 mg/ml Inj ONE (09:55)
--- NOTE | 2018-06-19 10:14 | CARD ---
APPROVED REPORT Date of service: 06/18/2018 EKG Measurement Heart [id number] <Conclusion> Normal sinus rhythm Normal ECG
[2018-06-19] MEDS ORDERED: Ropivacaine 0.5% 30ML IV ONE (10:23)
[2018-06-19] MEDS ORDERED: Lactated Ringer's 1,000 ML IV ONE (10:45)
[2018-06-19] MEDS ORDERED: Midazolam 2 MG/2 ML VIAL ONE (10:58)
[2018-06-19] MEDS ORDERED: Dexamethasone 4 mg/1 ml ONE (11:20)
[2018-06-19 12:16] LABS: FLUID TYPE SYNOVIAL FLUID
[2018-06-19 12:57] LABS: SF GROSS APPEARANCE CLOUDY (CLEAR); SYNOVIAL FLUID COMMENT YELLOWISH
[2018-06-19] MEDS ORDERED: Bacitracin Ointment 30 GM TUBE ONE (13:05)
[2018-06-19 13:25] LABS: SYNOVIAL FLUID MONO/MACROPHAGE 7 % (0-0)
[2018-06-19] MEDS ORDERED: Morphine 1 mg/ml preservative-free Inj(Duramorph) ONE (14:26)
--- NOTE | 2018-06-19 14:26 | PQF ---
PROVIDER RESPONSE TEXT: Moderate persistent asthma REVIEWER QUERY TEXT: Asthma Specificity and Type Physician?s Documentation Request This Form is Not a Permanent Document in the Medical Record Pt Name: SHARIF TORRES MR #: [id number] Payor: [facility] Adm Date: 06/18/2018 12:16:00 PM Reviewer: Riya Casey Ext. Query Date: 06/19/2018 11:26:52 AM Asthma Specificity and Type [id number] By submitting this query, we are merely seeking further clarification of documentation to accurately reflect all conditions that you are monitoring, evaluating, treating or that extend the hospitalizati on or utilize additional resources of care. Please utilize your independent clinical judgment when ad dressing the question(s) below. Dear Doctor Slime Hirsch, The patient?s Clinical Indicators include: History of Asthma documented. History of Asthma is documented in the Medical Record. Please specify the type and severity of asthm a. Such as: -- Mild intermittent -- Mild persistent -- Moderate persistent -- Severe persistent -- Exercise induced bronchospasm -- Cough variant asthma -- Other, please specify -- Unable to determine Rx: Airduo Resp Fluticasone-Salmeterol, Ventolin HFA PLEASE DOCUMENT ANY ADDITIONAL DIAGNOSES AND/OR SPECIFICITY IN THE PROGRESS NOTES AND/OR DISCHARGE ORTEGA MMARY. Clinically unable to determine/unknown Disagree with the above request Need to discuss Query created by: Riya Casey on 06/19/2018 11:26 AM Electronically signed by: Slime Hirsch 06/19/2018 2:23 PM
[2018-06-19] MEDS ORDERED: Neostigmine 1:1000 (1 mg/ml) Inj ONE (14:29)
[2018-06-19] MEDS ORDERED: Dexamethasone 4 mg/1 ml IVP PRN (15:06)
[2018-06-19] MEDS: HYDROmorphone 0.5 mg/0.5 ml ISec IVP PRN ×4 (15:15→15:45)
--- NOTE | 2018-06-19 15:27 | CP.PCM.PN ---
Subjective - Date & Time of Evaluation Date of Evaluation: 06/19/18 Time of Evaluation: 07:45 - Subjective Subjective: S- 52 yo male, sustained trauma approx 2 wks ago, but did not offer that hx in ER yesterday;forunately, I admitted pt. Pt presents with significant and persistent pain and restricted R knee ROM. No evdience for sepsis. Pt now admits torsianl injury to R knee after a an injury ("fall onto bed". and then played golf and hit 250 golf balls and noted pain, instability and R knee swelling and rstricted ROM/ Pt admitted. Aftyer obtaining tyhis hx, stat MRI was obtained Objective - Vital Signs/Intake and Output Vital Signs (last 24 hours): Temp Pulse Resp BP Pulse Ox 98 F 60 18 127/69 97 06/19/18 06:13 06/19/18 06:13 06/19/18 06:13 06/19/18 06:13 06/19/18 06:13 - Medications Medications: Current Medications Acetaminophen (Tylenol 325mg Tab) 650 mg PO Q4 PRN PRN Reason: Fever 101 degrees fahrenheit Albuterol (Ventolin Hfa 90 Mcg/Actuation (8 G)) 1 puff INH RQ6 PRN PRN Reason: Shortness of Breath Allopurinol (Zyloprim) 300 mg PO DAILY [facility] Last Admin: 06/19/18 08:07 Dose: Not Given Amlodipine Besylate (Norvasc) 5 mg PO DAILY [facility] Last Admin: 06/19/18 08:07 Dose: Not Given Dexamethasone (Decadron Inj) 4 mg IVP ONCE PRN PRN Reason: Nausea/Vomiting Stop: 06/19/18 17:08 Hydromorphone HCl (Dilaudid) 0.5 mg IVP Q5M PRN PRN Reason: Pain, severe (8-10) Stop: 06/19/18 17:07 Vancomycin HCl 1 gm/ Sodium (Chloride) 250 mls @ 166.667 mls/hr IVPB Q12 [facility]; Protocol Stop: 06/20/18 10:29 Acetaminophen (Ofirmev) 100 mls @ 400 mls/hr IVPB ONCE PRN; Protocol PRN Reason: Pain, moderate (4-7) Stop: 06/19/18 17:08 Lorazepam (Ativan) 1 mg PO HS PRN PRN Reason: Insomnia Last Admin: 06/18/18 21:11 Dose: 1 mg Metoclopramide HCl (Reglan) 10 mg IVP ONCE PRN PRN Reason: Nausea/Vomiting Stop: 06/19/18 17:08 Morphine Sulfate (Morphine) 2 mg IVP Q4 PRN PRN Reason: Pain, severe (8-10) Ondansetron HCl (Zofran Inj) 4 mg IVP ONCE PRN PRN Reason: Nausea/Vomiting Ondansetron HCl (Zofran Inj) 4 mg IVP ONCE PRN PRN Reason: Nausea/Vomiting Stop: 06/19/18 17:08 Oxycodone/Acetaminophen (Percocet 5/325 Mg Tab) 2 tab PO Q4 PRN PRN Reason: Pain, moderate (4-7) Stop: 06/22/18 12:12 Pantoprazole Sodium (Protonix Ec Tab) 40 mg PO DAILY [facility] Last Admin: 06/19/18 08:06 Dose: Not Given - Labs Labs: 06/19/18 05:55 06/19/18 05:55 PT 11.5 Seconds (9.8-13.1) 06/18/18 10:04 INR 1.0 06/18/18 10:04 APTT 31.6 Seconds (25.6-37.1) 06/18/18 10:04 - Additional Findings Additional findings: Physical exam objective exam systemic exam- there is no ebvidence for systemic sepsis no fever/ no shaking chills Musculoskektal exam strance/gait- defrred ROM still restricted pt has subjective complaints of R knee instrablility/ pt with hx of gout + balottable patella + medial/lateral joint line tenderness MRI exam reviewed with pt and with DR Linares instability testing could not be carried out because of pts tense effusion MRI accomplished this AM and reviewed with pt and with DR Linares MRI reveals; - partialtear ACL ( approx 45 p cent fibers) =tear lateral meniscus/tear medial meniscus sprain LCL- I perosnally reviewd, and so no evidence for partial or complete LCL tear quad tendon partial rupture (findigs at surgery confirmed partiasl tear, but with invasion of mid aspect of quad tendon with GOUTY TOPHUS) nO RELA TENDERNESS AT LATERAL COLLATERAL LIGAMENT COMPLEX + tenderness at LCL and posterolateral complex Assessment and Plan - Assessment and Plan (Free Text) Assessment: a- r/o GOUTY ARTHROPATHY NO EVIDENCE FOR r KNEE SEPSIS S/P TRAUM,ATIC INJURY r KNEE MRI + tear medial/tear lateral meniscus + partial tear ACL sprain lateral collateral ligamnet P- for surgical arthroscopy/ possible repair Quad Tendo pros/cons risks and befits discussed at length with pt - possible AXCL repair/possible quad tendon repair/possible excision gouty tophus/possibility of thrombembolic disease/possibility of secondary or tertiary surgery dissced possibility of knee stiffness- secondary or tertiary surgery discussed surgery to be done at pts insistence NO PROMISES OR GUARANTESS
--- NOTE | 2018-06-19 15:32 | PCM.SURG1 ---
Surgeon's Initial Post Op Note - Surgeon's Notes Surgeon: [facility] Fac[facility] Inspector: BRAVO Farrell Type of Anesthesia: General Endo Anesthesia Administered By: DR jah Nichols Pre-Operative Diagnosis: post traumatic derangement R knee. R/O gouty arthropathy Operative Findings: partial tear ACL 45-40% fibers. partial tear quad tendon. 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 tear medial /tear lateral meniscus. tricomparmental synovits / gouty tophus Post-Operative Diagnosis: as above Operation Performed: arthroascopic ACL repair. arthrotomy/repair partial tear quad tendon(with arthrex swivel lock anchor). excision gouty tophus quad tendon. arthroscopic partial medial/lateral mensicectomy. arthroscopic troicomartmentyal synovectomy. applx Augustus Murri[place] dressing and knee immobilizer Specimen/Specimens Removed: gouty tophus/ synvioum/cratilage/tendon Estimated Blood Loss: EBL {In ML}: 25 Blood Products Given: N/A Drains Used: No Drains Post-Op Condition: Fair Date of Surgery/Procedure: 06/19/18 Time of Surgery/Procedure: 12:00 (time in room 10$%/anaesthesia indcution time 10$%)
[2018-06-19] MEDS ORDERED: HYDROmorphone 0.5 mg/0.5 ml ISec IVP PRN (16:12)
[2018-06-19] MEDS ORDERED: HYDROmorphone 0.5 mg/0.5 ml ISec ONE (16:16)
--- NOTE | 2018-06-19 16:46 | RAD ---
Date of service: 06/19/2018 PROCEDURE: Right Knee Radiographs. HISTORY: post op COMPARISON: Preoperative study 06/18/2018. TECHNIQUE: 2 views obtained. FINDINGS: BONES: Normal. No fracture. JOINTS: Postoperative findings primarily prepatellar air JOINT EFFUSION: Air in the suprapatellar bursa with air-fluid level. OTHER FINDINGS: None. IMPRESSION: Postoperative findings described above. No acute osseous abnormalities.
[2018-06-19] MEDS ORDERED: Albuterol HFA 90 mcg/actuation (8 g) INH SCH (17:00)
[2018-06-19 19:47] VITALS: RESP 18
[2018-06-19] MEDS: Oxycodone/Acetaminophen 5/325 mg Tab PO PRN (20:17)
--- NOTE | 2018-06-19 20:40 | CP.PCM.PCO ---
Addendum Addendum: 06/19/18 20:43 Patient seen and examined at bedside s/p arthroscopic ACL repair and partial medial/lateral mensicectomy. Arthrotomy/repair partial tear quad tendon. Excision gouty tophus quad tendon. POD 1 Patient reports feeling fine but no able to void yet, also c/o knee pain at this time pain medications given, tolerating PO w/o difficulty. Denies fever, chills, N/V, CP/ sob or palpitations. VSS tough BP noted elevated likely 2/2 to pain Conitinue pain management Bladder scan now, may need straight cath Monitor vitals f/u Ortho orders and recs Rest of plan as ordered
[2018-06-19] MEDS ORDERED: FLUTICASONE PROPION/SALMETEROL 55-14 INHALER INH SCH (21:00)
[2018-06-19] MEDS ORDERED: Pantoprazole 40 mg EC Tab PO STA (22:50)
[2018-06-20] MEDS: Oxycodone/Acetaminophen 5/325 mg Tab PO PRN ×2 (01:33→09:04)
[2018-06-20 05:29] VITALS: TEMP 98.1
[2018-06-20 06:28] LABS: HEMOGLOBIN 13.5 g/dL (12.0-18.0); MEAN CELL VOLUME 90.2 fl (80.0-94.0); MEAN CORPUSCULAR HEMOGLOBIN 30.8 pg (27.0-31.0); MEAN CORPUSCULAR HGB CONC 34.1 g/dL (33.0-37.0); RBC 4.39 Mil/uL (4.40-5.90); RED CELL DISTRIBUTION WIDTH 13.2 % (11.5-14.5); WHITE BLOOD COUNT 9.7 K/uL (4.8-10.8)
[2018-06-20 06:41] LABS: BLOOD UREA NITROGEN 18 mg/dl (9-20); GFR NON-AFRICAN AMERICAN > 60
[2018-06-20 07:23] VITALS: BP 154/83
--- NOTE | 2018-06-20 08:39 | CP.PCM.PN ---
Subjective - Date & Time of Evaluation Date of Evaluation: 06/20/18 Time of Evaluation: 07:30 - Subjective Subjective: Patient seen and examined at bedside comfortable. Pain is well controlled this AM. Kept in knee imm since surgery. No acute events overnight. Denies CP/SOB/fever/dizziness. Objective - Vital Signs/Intake and Output Vital Signs (last 24 hours): Temp Pulse Resp BP Pulse Ox 98.1 F 63 18 154/83 H 95 06/20/18 07:22 06/20/18 07:22 06/20/18 07:22 06/20/18 07:22 06/20/18 07:22 Intake and Output: 06/20/18 06/20/18 06:59 18:59 Output Total 600 Balance -600 - Medications Medications: Current Medications Acetaminophen (Tylenol 325mg Tab) 650 mg PO Q4 PRN PRN Reason: Fever 101 degrees fahrenheit Albuterol (Ventolin Hfa 90 Mcg/Actuation (8 G)) 1 puff INH RQ6 PRN PRN Reason: Shortness of Breath Allopurinol (Zyloprim) 300 mg PO DAILY [facility] Last Admin: 06/19/18 08:07 Dose: Not Given Amlodipine Besylate (Norvasc) 5 mg PO DAILY [facility] Last Admin: 06/19/18 08:07 Dose: Not Given Hydromorphone HCl (Dilaudid) 0.5 mg IVP Q15MIN PRN PRN Reason: Pain, moderate (4-7) Last Admin: 06/19/18 16:15 Dose: 0.5 mg Vancomycin HCl 1 gm/ Sodium (Chloride) 250 mls @ 166.667 mls/hr IVPB Q12 BUDDY; Protocol Stop: 06/20/18 10:29 Last Admin: 06/19/18 20:24 Dose: 166.667 mls/hr Lorazepam (Ativan) 1 mg PO HS PRN PRN Reason: Insomnia Last Admin: 06/18/18 21:11 Dose: 1 mg Morphine Sulfate (Morphine) 2 mg IVP Q4 PRN PRN Reason: Pain, severe (8-10) Last Admin: 06/20/18 05:18 Dose: 2 mg Ondansetron HCl (Zofran Inj) 4 mg IVP ONCE PRN PRN Reason: Nausea/Vomiting Oxycodone/Acetaminophen (Percocet 5/325 Mg Tab) 2 tab PO Q4 PRN PRN Reason: Pain, moderate (4-7) Stop: 06/22/18 12:12 Last Admin: 06/20/18 01:33 Dose: 2 tab Pantoprazole Sodium (Protonix Ec Tab) 40 mg PO DAILY BUDDY Last Admin: 06/19/18 08:06 Dose: Not Given - Labs Labs: 06/20/18 05:15 06/20/18 05:15 PT 11.5 Seconds (9.8-13.1) 06/18/18 10:04 INR 1.0 06/18/18 10:04 APTT 31.6 Seconds (25.6-37.1) 06/18/18 10:04 - Extremities Exam Additional comments: R knee: Knee imm in place Dressings CDI sensation intact SP/DP/TN motor intact EHL/FHL/TA/G pedal pulse intact calves soft NT b/l Assessment and Plan (1) Gout of knee Assessment & Plan: POD#1 s/p R knee arthroscopic w/o, ACL/quad tendon repair -PT/OT 15% FFWB -DVT ppx ASA 81mg BID -complete postop abx dose -orthopedically stable for d/c to home -f/u in office within 7-10 days -d/w Dr. Chung who agrees with above Status: Acute
[2018-06-20] MEDS: Pantoprazole 40 mg EC Tab PO SCH (08:58)
--- NOTE | 2018-06-20 09:57 | CP.PCM.DIS ---
<Slime Hirsch - Last Filed: 06/20/18 12:41> Provider - Provider Date of Admission: 06/18/18 12:16 Attending physician: Michael Mejia MD Consults: 06/18/18 12:16 Orthopedic Consult Stat Comment: Consulting Provider: Leland Chung III Consulting Physician: Leland Chung III Reason for Consult: Septic arthritis 06/19/18 12:11 Case Management Referral Routine Comment: Physician Instructions: Reason For Exam: Reason for Referral: Discharge Planning Time Spent in preparation of Discharge (in minutes): 30 Diagnosis - Discharge Diagnosis (1) Swelling of right knee joint Status: Acute Comment: Orthopedic consult - s/p Arthroscopic repair. Vancomycin x 3days. s/p 2 doses of Zyvox 600mg PO day prior to admission. MRI: Partial tear or sprain of ACL and LCL; partial tear of distal qudraceps tendon; medial meniscal tear posterior horn;. moderate suprapatellar bursa effusion and medial popliteal cyst; prominent david lateral knee soft tissue edema. (2) Hypertension Status: Chronic Comment: Amlodipine 5 mg po daily. controlled Hospital Course - Lab Results Lab Results: Micro Results 06/19/18 12:13 Body Fluid - Knee-Right Gram Stain - Final 06/18/18 10:01 Blood-Venous Blood Culture - Preliminary NO GROWTH AFTER 24 HOURS 06/18/18 09:40 Blood-Venous Blood Culture - Preliminary NO GROWTH AFTER 24 HOURS Most Recent Lab Values WBC 9.7 K/uL (4.8-10.8) 06/20/18 05:15 RBC 4.39 Mil/uL (4.40-5.90) L 06/20/18 05:15 Hgb 13.5 g/dL (12.0-18.0) 06/20/18 05:15 Hct 39.6 % (35.0-51.0) 06/20/18 05:15 MCV 90.2 fl (80.0-94.0) 06/20/18 05:15 MCH 30.8 pg (27.0-31.0) 06/20/18 05:15 MCHC 34.1 g/dL (33.0-37.0) 06/20/18 05:15 RDW 13.2 % (11.5-14.5) 06/20/18 05:15 Plt Count 230 K/uL (130-400) 06/20/18 05:15 MPV 9.1 fl (7.2-11.7) 06/19/18 05:55 Neut % (Auto) 59.8 % (50.0-75.0) 06/19/18 05:55 Lymph % (Auto) 25.8 % (20.0-40.0) 06/19/18 05:55 [place] % (Auto) 11.0 % (0.0-10.0) H 06/19/18 05:55 Eos % (Auto) 2.8 % (0.0-4.0) 06/19/18 05:55 Baso % (Auto) 0.6 % (0.0-2.0) 06/19/18 05:55 Neut # (Auto) 4.0 K/uL (1.8-7.0) 06/19/18 05:55 Lymph # (Auto) 1.7 K/uL (1.0-4.3) 06/19/18 05:55 [place] # (Auto) 0.7 K/uL (0.0-0.8) 06/19/18 05:55 Eos # (Auto) 0.2 K/uL (0.0-0.7) 06/19/18 05:55 Baso # (Auto) 0.0 K/uL (0.0-0.2) 06/19/18 05:55 ESR 22 mm/hr (0-15) H 06/18/18 11:33 PT 11.5 Seconds (9.8-13.1) 06/18/18 10:04 INR 1.0 06/18/18 10:04 APTT 31.6 Seconds (25.6-37.1) 06/18/18 10:04 Sodium 134 mmol/l (132-148) 06/20/18 05:15 Potassium 4.1 MMOL/L (3.6-5.0) 06/20/18 05:15 Chloride 98 mmol/L (98-107) 06/20/18 05:15 Carbon Dioxide 24 mmol/L (22-30) 06/20/18 05:15 Anion Gap 16 (10-20) 06/20/18 05:15 BUN 18 mg/dl (9-20) 06/20/18 05:15 Creatinine 0.9 mg/dl (0.8-1.5) 06/20/18 05:15 Est GFR ( Amer) > 60 06/20/18 05:15 Est GFR (Non-Af Amer) > 60 06/20/18 05:15 Random Glucose 135 mg/dL (75-110) H 06/20/18 05:15 Uric Acid 5.6 mg/Dl (3.5-8.5) 06/18/18 10:04 Calcium 9.0 mg/dL (8.4-10.2) 06/20/18 05:15 Total Bilirubin 1.4 mg/dl (0.2-1.3) H 06/18/18 10:04 AST 39 U/L (17-59) 06/18/18 10:04 ALT 49 U/L (21-72) 06/18/18 10:04 Alkaline Phosphatase 74 U/L (38-126) 06/18/18 10:04 C-Reactive Protein 12.30 mg/L (0.0-9.9) H 06/18/18 11:33 Total Protein 7.3 G/DL (6.3-8.2) 06/18/18 10:04 Albumin 4.5 g/dL (3.5-5.0) 06/18/18 10:04 Globulin 2.8 gm/dL (2.2-3.9) 06/18/18 10:04 Albumin/Globulin Ratio 1.6 (1.0-2.1) 06/18/18 10:04 Urine Color Straw (YELLOW) 06/18/18 23:30 Urine Clarity Clear (Clear) 06/18/18 23:30 Urine pH 6.0 (5.0-8.0) 06/18/18 23:30 Ur Specific [place] 1.006 (1.003-1.030) 06/18/18 23:30 Urine Protein Negative mg/dL (NEGATIVE) 06/18/18 23:30 Urine Glucose (UA) Neg mg/dL (NEGATIVE) 06/18/18 23:30 Urine Ketones Negative mg/dL (NEGATIVE) 06/18/18 23:30 Urine Blood Negative (NEGATIVE) 06/18/18 23:30 Urine Nitrate Negative (NEGATIVE) 06/18/18 23:30 Urine Bilirubin Negative (NEGATIVE) 06/18/18 23:30 Urine Urobilinogen 0.2-1.0 mg/dL (0.2-1.0) 06/18/18 23:30 Ur Leukocyte Esterase Neg Mere/uL (Negative) 06/18/18 23:30 Urine RBC (Auto) 1 /hpf (0-3) 06/18/18 23:30 Urine Microscopic WBC < 1 /hpf (0-5) 06/18/18 23:30 Fluid Type Synovial fluid 06/19/18 12:13 Synovial WBC 1694.0 /mm3 (0.0-150.0) H 06/19/18 12:13 Synovial RBC 950.0 /mm3 (0.0-0.0) H 06/19/18 12:13 Synovial Neutrophils 81.0 % (0-0) H 06/19/18 12:13 Synovial Lymphocytes 12.0 % (0-0) H 06/19/18 12:13 Synov Monos/Macrophage 7 % (0-0) H 06/19/18 12:13 Synovial Fluid Comment Yellowish 06/19/18 12:13 Blood Type O POSITIVE 06/19/18 09:00 Blood Type Confirm O POSITIVE 06/19/18 05:55 Antibody Screen Negative 06/19/18 09:00 BBK History Checked No verified bt 06/19/18 09:00 - Hospital Course Hospital Course: 52 yo male with history of Gout and HTN presents to [facility] with complaint of right knee swelling and pain admitted for right knee swelling found to have ACL/Quad tendon partial tear s/p R knee Arthroscopy POD 1. Was on 2 days of Vancomycin. Patient continued to be hemodynamically stable. Seen by Physical therapy. Post-Op, patient had one episode of urinary retention > 500cc but was relieved with straight cath. Patient was able to void on his own afterwards. No urinary symptoms reported. MRI: Partial tear or sprain of ACL and LCL; partial tear of distal qudraceps tendon; medial meniscal tear posterior horn; moderate suprapatellar bursa effusion and medial popliteal cyst; prominent david lateral knee soft tissue edema. Discharged with Aspirin 81mg BID, allopurinol home dose. To follow up with Dr. Chung in 7-10 days. Discharge Exam - Head Exam Head Exam: ATRAUMATIC, NORMAL INSPECTION, NORMOCEPHALIC - Eye Exam Eye Exam: Normal appearance - ENT Exam ENT Exam: Mucous Membranes Moist - Respiratory Exam Respiratory Exam: Clear to PA & Lateral, NORMAL BREATHING PATTERN, UNREMARKABLE. absent: Accessory Muscle Use, Chest Wall Tenderness, Decreased Breath Sounds, Prolonged Expiratory Phase, Rales, Rhonchi, Wheezes, Respiratory Distress, Stridor - Cardiovascular Exam Cardiovascular Exam: REGULAR RHYTHM, +S1, +S2 - GI/Abdominal Exam GI & Abdominal Exam: Normal Bowel Sounds, Soft, Unremarkable. absent: Diminis hed Bowel Sounds, Distended, Firm, Guarding, Hernia, Rebound, Rigid, Tenderness - Extremities Exam Extremities exam: normal capillary refill, pedal pulses present (Sensation intact bilaterally. Right knee immobilizer in place. ) - Neurological Exam Neurological exam: Alert, Oriented x3 - Psychiatric Exam Psychiatric exam: Normal Affect, Normal Mood - Skin Skin Exam: Dry, Intact, Normal Color, Warm Discharge Plan - Discharge Medications Prescriptions: RX: Allopurinol [Zyloprim] 300 mg PO DAILY #30 tab RX: Aspirin [Ecotrin] 81 mg PO BID #60 tabec Docusate [Colace] 100 mg PO BID 7 Days #14 cap - Follow Up Plan Condition: STABLE Disposition: HOME/ ROUTINE Patient education suggested?: Yes Instructions: Knee Immobilizer (DC), Knee Arthroscopy (DC), Swollen Joints (DC) Additional Instructions: follow up with primary MD and Dr Chung 7-10 days FOOT FLAT 15% weight bearing Referrals: Leland Chung III, MD [Staff Provider] - <Kayleigh Edward Samara - Last Filed: 06/20/18 13:36> Provider - Provider Date of Admission: 06/18/18 12:16 Attending physician: Michael Mejia MD Consults: 06/18/18 12:16 Orthopedic Consult Stat Comment: Consulting Provider: Leland Chung III Consulting Physician: Leland Chung III Reason for Consult: Septic arthritis 06/19/18 12:11 Case Management Referral Routine Comment: Physician Instructions: Reason For Exam: Reason for Referral: Discharge Planning Hospital Course - Lab Results Lab Results: Micro Results 06/19/18 13:24 Knee - Right Wound Culture - Preliminary NO GROWTH AFTER 24 HOURS 06/19/18 13:24 Knee - Right Wound Culture - Preliminary NO GROWTH AFTER 24 HOURS 06/19/18 13:24 Knee - Right Wound Culture - Preliminary NO GROWTH AFTER 24 HOURS 06/19/18 13:24 Knee - Right Wound Culture - Preliminary NO GROWTH AFTER 24 HOURS 06/19/18 13:24 Knee - Right Wound Culture - Preliminary NO GROWTH AFTER 24 HOURS 06/19/18 13:24 Knee - Right Wound Culture - Preliminary NO GROWTH AFTER 24 HOURS 06/19/18 13:24 Knee - Right Wound Culture - Preliminary NO GROWTH AFTER 24 HOURS 06/19/18 13:24 Knee - Right Wound Culture - Preliminary NO GROWTH AFTER 24 HOURS 06/19/18 12:13 Body Fluid - Knee-Right Gram Stain - Final 06/19/18 12:13 Body Fluid - Knee-Right Body Fluid Culture - Preliminary NO GROWTH AFTER 24 HOURS 06/18/18 10:01 Blood-Venous Blood Culture - Preliminary NO GROWTH AFTER 48 HOURS 06/18/18 09:40 Blood-Venous Blood Culture - Preliminary NO GROWTH AFTER 48 HOURS Most Recent Lab Values WBC 9.7 K/uL (4.8-10.8) 06/20/18 05:15 RBC 4.39 Mil/uL (4.40-5.90) L 06/20/18 05:15 Hgb 13.5 g/dL (12.0-18.0) 06/20/18 05:15 Hct 39.6 % (35.0-51.0) 06/20/18 05:15 MCV 90.2 fl (80.0-94.0) 06/20/18 05:15 MCH 30.8 pg (27.0-31.0) 06/20/18 05:15 MCHC 34.1 g/dL (33.0-37.0) 06/20/18 05:15 RDW 13.2 % (11.5-14.5) 06/20/18 05:15 Plt Count 230 K/uL (130-400) 06/20/18 05:15 MPV 9.1 fl (7.2-11.7) 06/19/18 05:55 Neut % (Auto) 59.8 % (50.0-75.0) 06/19/18 05:55 Lymph % (Auto) 25.8 % (20.0-40.0) 06/19/18 05:55 [place] % (Auto) 11.0 % (0.0-10.0) H 06/19/18 05:55 Eos % (Auto) 2.8 % (0.0-4.0) 06/19/18 05:55 Baso % (Auto) 0.6 % (0.0-2.0) 06/19/18 05:55 Neut # (Auto) 4.0 K/uL (1.8-7.0) 06/19/18 05:55 Lymph # (Auto) 1.7 K/uL (1.0-4.3) 06/19/18 05:55 [place] # (Auto) 0.7 K/uL (0.0-0.8) 06/19/18 05:55 Eos # (Auto) 0.2 K/uL (0.0-0.7) 06/19/18 05:55 Baso # (Auto) 0.0 K/uL (0.0-0.2) 06/19/18 05:55 ESR 22 mm/hr (0-15) H 06/18/18 11:33 PT 11.5 Seconds (9.8-13.1) 06/18/18 10:04 INR 1.0 06/18/18 10:04 APTT 31.6 Seconds (25.6-37.1) 06/18/18 10:04 Sodium 134 mmol/l (132-148) 06/20/18 05:15 Potassium 4.1 MMOL/L (3.6-5.0) 06/20/18 05:15 Chloride 98 mmol/L (98-107) 06/20/18 05:15 Carbon Dioxide 24 mmol/L (22-30) 06/20/18 05:15 Anion Gap 16 (10-20) 06/20/18 05:15 BUN 18 mg/dl (9-20) 06/20/18 05:15 Creatinine 0.9 mg/dl (0.8-1.5) 06/20/18 05:15 Est GFR ( Amer) > 60 06/20/18 05:15 Est GFR (Non-Af Amer) > 60 06/20/18 05:15 Random Glucose 135 mg/dL (75-110) H 06/20/18 05:15 Uric Acid 5.6 mg/Dl (3.5-8.5) 06/18/18 10:04 Calcium 9.0 mg/dL (8.4-10.2) 06/20/18 05:15 Total Bilirubin 1.4 mg/dl (0.2-1.3) H 06/18/18 10:04 AST 39 U/L (17-59) 06/18/18 10:04 ALT 49 U/L (21-72) 06/18/18 10:04 Alkaline Phosphatase 74 U/L (38-126) 06/18/18 10:04 C-Reactive Protein 12.30 mg/L (0.0-9.9) H 06/18/18 11:33 Total Protein 7.3 G/DL (6.3-8.2) 06/18/18 10:04 Albumin 4.5 g/dL (3.5-5.0) 06/18/18 10:04 Globulin 2.8 gm/dL (2.2-3.9) 06/18/18 10:04 Albumin/Globulin Ratio 1.6 (1.0-2.1) 06/18/18 10:04 Urine Color Straw (YELLOW) 06/18/18 23:30 Urine Clarity Clear (Clear) 06/18/18 23:30 Urine pH 6.0 (5.0-8.0) 06/18/18 23:30 Ur Specific [place] 1.006 (1.003-1.030) 06/18/18 23:30 Urine Protein Negative mg/dL (NEGATIVE) 06/18/18 23:30 Urine Glucose (UA) Neg mg/dL (NEGATIVE) 06/18/18 23:30 Urine Ketones Negative mg/dL (NEGATIVE) 06/18/18 23:30 Urine Blood Negative (NEGATIVE) 06/18/18 23:30 Urine Nitrate Negative (NEGATIVE) 06/18/18 23:30 Urine Bilirubin Negative (NEGATIVE) 06/18/18 23:30 Urine Urobilinogen 0.2-1.0 mg/dL (0.2-1.0) 06/18/18 23:30 Ur Leukocyte Esterase Neg Mere/uL (Negative) 06/18/18 23:30 Urine RBC (Auto) 1 /hpf (0-3) 06/18/18 23:30 Urine Microscopic WBC < 1 /hpf (0-5) 06/18/18 23:30 Fluid Type Synovial fluid 06/19/18 12:13 Synovial WBC 1694.0 /mm3 (0.0-150.0) H 06/19/18 12:13 Synovial RBC 950.0 /mm3 (0.0-0.0) H 06/19/18 12:13 Synovial Neutrophils 81.0 % (0-0) H 06/19/18 12:13 Synovial Lymphocytes 12.0 % (0-0) H 06/19/18 12:13 Synov Monos/Macrophage 7 % (0-0) H 06/19/18 12:13 Synovial Fluid Comment Yellowish 06/19/18 12:13 Blood Type O POSITIVE 06/19/18 09:00 Blood Type Confirm O POSITIVE 06/19/18 05:55 Antibody Screen Negative 06/19/18 09:00 BBK History Checked No verified bt 06/19/18 09:00 Attending/Attestation - Attestation I have personally seen and examined this patient.: Yes I have fully participated in the care of the patient.: Yes I have reviewed all pertinent clinical information, including history, physical exam and plan: Yes Notes (Text): Right Knee Pain and Swelling due to ACL , Medial Meniscal, Quadriceps Tendon Tear and Gout s/p Arthroscopic ACL, Meniscal and Quadriceps Tendon Repair Unlikely Septic Arthritis HTN Gout -MRI of the knee : 1. Partial tear or sprain ACL and LCL as per above. 2. A partial tear of the distal quadriceps tendon is appreciated at the midline with medial and lateral fibers close to its insertion (see series 4, image 22 and series 7, image 6). 3. Medial meniscal tear posterior horn. 4. Moderate suprapatellar bursa effusion and medial popliteal cyst. 5. Prominent david lateral knee soft tissue edema. - s/p Arthroscopic Surgery today by DR Chung -Synovial fluid analysis: Gram STain : negative, WBC ct : 1600 - cont Allopurinol -cont antihypertensive meds -Pain mgt -Physical therapy consulted - DVT proph post op : ASA 81 mg bid as recomended by Ortho
[2018-06-20 12:03] VITALS: PULSE 73; O2SAT 96
--- NOTE | 2018-06-20 12:28 | OP ---
PROCEDURE DATE: 06/19/2018 PREOPERATIVE DIAGNOSES: 1. Right knee effusion. 2. Post-traumatic derangement of the right knee. 3. Rule out gouty arthropathy of the right knee. OPERATIVE FINDINGS: 1. Partial tear of anterior cruciate ligament, 45% of the fibers. 2. Partial tear of the quad tendon. 3. 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 4. Tear of medial and lateral menisci. 5. Tricompartmental synovitis with evidence of gouty crystals. 6. Prepatellar bursitis. POSTOPERATIVE DIAGNOSES: 1. Right knee effusion. 2. Post-traumatic derangement of the right knee. 3. Rule out gouty arthropathy of the right knee. OPERATIONS PERFORMED: 1. Arthroscopic acromioclavicular repair with the FiberWire gathering technique. 2. Arthrotomy repair of the partial tear of the quad tendon using the Arthrex SwiveLock anchor. 3. Excision of gouty tophus in the quad tendon. 4. Arthroscopic partial, medial, and lateral meniscectomy. 5. Partial prepatellar bursectomy. 6. Arthroscopic tricompartmental synovectomy. 7. Application of Augustus Murrieta compression dressing and knee immobilizer. SURGEON: Leland Chung MD VICE PRESIDENT RESEARCH: Luz Sesay, certified registered nursing assistant track and field coach. The operation cannot be completed without the assistance of Lázaro CORDON. SPECIMENS REMOVED: Gouty tophus, synovium, cartilage, and tendon. BLOOD LOSS: Approximately 25 mL. BLOOD PRODUCTS: Given none. DRAINS: No drains. POSTOPERATIVE CONDITION: Stable. TIME OF SURGERY: Time in the room, 12:00 noon. Time of incision, 12:00 noon. 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 The patient complained that he had a history of gout and he also complained that he had some chills at some point, but he was afebrile. The patient later in the treatment course, specifically the next morning after admission, admitted the fact that he had a traumatic injury two weeks ago when he fell on a bed sustaining a torsional injury to the right knee. After that injury, the patient played 18 holes of golf, hit 250 golf balls on the practice range, and played tennis. The patient complained of some instability and pain in the knee, and the knee swelled two weeks later to the point where he had to go to the emergency room. Dr. Chung attended the patient in the emergency room and CT scan was obtained which revealed evidence of a gouty area in the knee. The patient was admitted, emergency MRI was accomplished on 06/19/2018 a.m., which revealed: 1. Partial tear of the anterior cruciate ligament. 2. Gouty arthropathy. 3. Tear of medial and lateral meniscus. 4. Tricompartmental synovitis. 5. Partial tear of the mid third of the quadriceps tendon from infiltration of the gouty tophus. Again, the operation was discussed at length with the patient. 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 Pros, cons, risks, and benefits of surgical arthroscopy and arthroscopic ACL repair with the modified DiFelice technique was discussed, the concept of possible repair of the partial tear of the quad tendon. The concept that the lateral collateral ligament was not completely torn and in fact, it was just sprained in my opinion on physical examination, after the patient was asleep, so no surgical intervention to the lateral collateral ligament would be accomplished. OPERATIVE PROCEDURE: After having obtained informed consent in the above fashion, after having gone over the MRI in detail with the patient, after thoroughly discussing the pros, cons, risks, and benefits of surgical approach, the possibility of nerve injury, the possibility of stiffness, the possibility of mechanical failure of any of the device, the possibility of nerve injury, the possibility of secondary or tertiary surgery was discussed, the possibility of later debridement for recurrent gout was discussed. The concept that the patient may be immobilized for an extended period of time, four to six to eight weeks to be followed by therapy which may in general stiffness was discussed. The patient wishes the operation to be done as soon as possible because of his busy schedule, his father is a physician and he had discussed the situation with him. After having obtained informed consent in the above fashion, after having identified the right knee as the correct knee, side, site, and procedure, and a critical pause/time-out, after the satisfactory induction of the anesthetic by Dr. Nichols, the patient identified as Masood Otto in the supine position with all bony prominences well padded. The right lower extremity was prepped and free draped in the usual fashion for lower extremity surgery. The tourniquet had been applied, but was not yet inflated. After exsanguinating the limb using a 6-inch Esmarch bandage, the tourniquet which had been applied was inflated to 350 mmHg. The arthroscopic portion of the procedure was carried out first. From an anterolateral portal, using #18-gauge needle, the joint was insufflated with approximately 10 mL of 1% lidocaine without epinephrine. Using #11 blade followed by spreading, followed by introduction of the blunt trocar, the arthroscope was introduced. There was found to be an exuberant and inflammatory synovitis, which both causes the effusion, obscures vision, and is clearly an inflammatory tissue. Triangulation was accomplished using #18-gauge spinal needle from an anteromedial portal. Using #18-gauge spinal needle, followed by #11 blade, followed by spreading with the arthroscope anterolaterally, a careful partial tricompartmental synovectomy was accomplished using the [employer] arthroscopic shaver. There was found to be evidence of a gouty tophus. Please refer to the video photographs which will be addressed later in the procedure. With the arthroscope anterolaterally, a careful partial tricompartmental synovectomy was accomplished, both to improve visualization and to ablate irritative tissue. With the arthroscope anterolaterally, using the arthroscopic wand, bleeding points were controlled using the arthroscopic wand. Again, there was found to be an exuberant synovitis and a great deal of time was taken for the partial tricompartmental synovectomy. At this point in time, synovectomy having been completed, examination of the joint reveals evidence of the partial tear of the anterior cruciate ligament, tear of the lateral meniscus, and tear of the inner free edge of the medial meniscus. With the arthroscope anterolaterally, an anterior central portal was accomplished using #18-gauge spinal needle, followed by #11 blade, followed by spreading, followed by introduction of blunt trocar. With the arthroscope anterolaterally, with the surgeon exerting a gentle valgus stress so as not to injure the medial collateral ligament, the medial compartment was exposed. There was found to be a tear of the inner free edge extending from the mid aspect of the deep posterior horn. Using a combination of the straight-biting basket forceps and the arthroscopic shaver, a partial medial meniscectomy was accomplished. The inner free edge was smoothed using the arthroscopic wand. With the arthroscope anterolaterally, with the knee in [id number] position, there was found to be evidence of a complex tear of the lateral meniscus extending from the mid aspect of the deep posterior horn. Using a combination of the straight-biting basket forceps and the side-biting basket forceps, a partial lateral meniscectomy was accomplished. This having been accomplished, the arthroscope was transferred anteromedially to access the deep posterior horn. With the surgeon again with the knee in the [id number] position against the lateral post, the lateral meniscus was exposed to advantage using the straight-biting basket forceps. The arthroscope was transferred back anterolaterally. Using a combination of the straight biting basket forceps and the side-biting basket forceps, a partial lateral meniscectomy was accomplished. With the arthroscope anterolaterally, using the arthroscopic wand, the inner free edge was smoothed using the arthroscopic wand. Careful partial tricompartmental synovectomy was accomplished. At this point in time, the stenotic A-shaped notch was identified and with the arthroscope anterolaterally using the one-quarter inch curved osteotome anterocentrally, the notchplasty of the medial wall of the lateral femoral condyle was accomplished. Notchplasty was initiated with the wand and this followed with the bur with the arthroscope anterolaterally. With the arthroscopic bur through the anteromedial portal, taking great care not to injure either the anterior or posterior cruciate ligament, an extensive notchplasty was accomplished to get posterior to the resident's ridge to get to the footprint of the anterior cruciate ligament. Please refer to the video photographs. There was found to be a tear of the anterior cruciate ligament as identified on MRI, approximately 45% of the ACL fibers. The patient has had a contralateral ACL and he has a knee at risk for complete ACL rupture, so ACL repair was decided upon and had been discussed at length with the patient preoperatively. With the arthroscope anterolaterally, the double FiberTag modified DiFelice technique was employed. With the arthroscope anterolaterally, the Scorpion was placed anteromedially and with the knee approximately 35 degrees short of extension, the base of the cruciate ligament was identified and the tear was identified and was encircled with the Scorpion device. The luggage tag had been accomplished. It was brought out through the anteromedial portal and the Scorpion was reloaded and in a modified [place] type situation, the tear was incorporated and solidified all the way to the origin of the anterior cruciate ligament, and that is accessed with the knee in hyperextension. The same thing was accomplished with the second suture, placed orthogonally and superiorly. At this point in time, with the knee in approximately 90 degrees of flexion and 95 degrees of flexion through the anteromedial portal, the guidewire was introduced. Reaming was accomplished and at this point in time, with the knee approximately 25 degrees short of terminal extension for maximum repair and capability, the SwiveLock was loaded, it was impacted into the reamed aperture at the SwiveLock extension. The tension was found to be excellent. The SwiveLock having been incorporated, the osteophytes having been removed, the FiberTape was clipped, and at this point in time, with the arthroscopic wand on a very low-thermal setting, the ligament was painted to encourage healing and strengthening of the ligamentous tissue. This having been accomplished using the arthroscopic wand, the inner free edge of the medial meniscus and lateral meniscus were smoothed. Partial tricompartmental synovectomy continues. At this point in time, with the knee in extension, with the arthroscope anteromedially, the gouty tophus was identified and an extensive synovectomy to include excision of the gouty tophus was accomplished. Please refer to the video photographs. The gouty tophus having been accomplished, excision of the gout from the joint having been accomplished, the wound was thoroughly irrigated. Closure of the portals with interrupted Vicryl and nylon. The anterior central portal was closed in two layers with 2-0 Vicryl and nylon. Attention was now turned to the quadriceps tendon. An incision approximately 4-1/2 inches in extent from the mid aspect of the patella, four fingerbreadths proximally was identified. The skin incision was carried down through the skin and subcutaneous tissue. Great care was taken to avoid injury to the tendon. There was immediately an evidence of 1 cm from the superior border of the patella, a gouty tophus which was caseating and which has invaded the quadriceps tendon. This having been accomplished, there was found to be an exuberant bursitis in the prepatellar bursa. A partial prepatellar bursectomy was accomplished, and this tissue was removed allowing access to the superior pole of the patella, again for SwiveLock repair of the tendon. At this point time, using #10 blade, please refer to the video photographs, the gouty tophus was excised using #10 blade with an ellipse. This having been accomplished, great care was taken to avoid complete injury to the tendon as only the central third of the tendon was involved extending from the anterior to mid aspect of the tendon. This having been accomplished, using a FiberTape and a modified [place]-type sutures beginning proximally and extending distally to the area of the tear, the tear being freshened with a #10 blade, and the suture tape being brought back through the tendon drilling, the drill bit was placed in the superior aspect of the patella after having smoothened of debris and actually some gouty involvement there as well. This having been accomplished, reaming was accomplished to 25 mm with the knee in extension 5 degrees short of the terminal extension, the SwiveLock was loaded. The quadriceps tendon having been mobilized, the SwiveLock was impacted. The SwiveLock tension was advanced using the parent panel technique, and this having been accomplished, the fixation was found to be excellent. Using the remainder of the additional FiberWire suture from the SwiveLock, further repair of the junction between the extensor expansion and the quadriceps tendon was accomplished with interrupted sutures. A modified Ramos stitch was accomplished as well to gather the tendon both medially and laterally with #2 FiberWire. The repair was found to be excellent. The wound was thoroughly irrigated. The tourniquet was deflated. Hemostasis was controlled with electrocautery. Closures in layers, 0 Vicryl, 2-0 Vicryl, and 2-0 Quill plastic closure for the incision for the quadriceps tendon repair. It also should be noted that an extensive partial prepatellar bursectomy was accomplished to expose the patella and to remove more of the gouty crystals. It should be noted that thorough irrigation was accomplished as well. Augustus Murrieta compression dressing and knee immobilizer was applied. It should be noted that this patient presented to the emergency room, was admitted as an emergency, and this operation was performed as an emergency in no uncertain terms. OPERATIVE PROCEDURES: 1. Arthroscopic anterior cruciate ligament repair. 2. Arthrotomy repair of the partial tear of the quadriceps tendon with Arthrex SwiveLock technology. 3. Excision of gouty tophus in the quadriceps tendon. 4. Arthroscopic partial, medial, and lateral meniscectomy. 5. Prepatellar bursectomy. 6. Arthroscopic tricompartmental synovectomy. 7. Intra-articular injection. 8. Application of Augustus Murrieta compression dressing and knee immobilizer. Leland Chung MD
== END 2018-06-20 14:18 | disposition home or self-care (01) | DRG 489 ==
LOC: H.ER 09:06 → H.ERHOLD 12:16 → H.TEL 15:57 → H.MEDSURG1 17:50
PROC: 0SBC4ZZ Excision of Right Knee Joint, Percutaneous Endoscopic Approach (ICD-10-PCS; 2018-06-19)
PROC: 0MQN4ZZ Repair Right Knee Bursa and Ligament, Percutaneous Endoscopic Approach (ICD-10-PCS; 2018-06-19)
PROC: 0MBN0ZZ Excision of Right Knee Bursa and Ligament, Open Approach (ICD-10-PCS; 2018-06-19)
PROC: 0LQL0ZZ Repair Right Upper Leg Tendon, Open Approach (ICD-10-PCS; 2018-06-19)
PROC: 0SBC4ZZ Excision of Right Knee Joint, Percutaneous Endoscopic Approach (ICD-10-PCS; principal; 2018-06-19 10:15)
DX: M25.461 Effusion, right knee (principal); J45.40 Moderate persistent asthma, uncomplicated; S83.511A Sprain of anterior cruciate ligament of right knee, initial encounter; S83.241A Other tear of medial meniscus, current injury, right knee, initial encounter; M1A.9XX1 Chronic gout, unspecified, with tophus (tophi); S76.111A Strain of right quadriceps muscle, fascia and tendon, initial encounter; R33.8 Other retention of urine; I10 Essential (primary) hypertension; E78.00 Pure hypercholesterolemia, unspecified; E78.5 Hyperlipidemia, unspecified; M65.9 Synovitis and tenosynovitis, unspecified; M70.41 Prepatellar bursitis, right knee; M71.21 Synovial cyst of popliteal space [Baker], right knee; S83.421A Sprain of lateral collateral ligament of right knee, initial encounter; S83.271A Complex tear of lateral meniscus, current injury, right knee, initial encounter; W19.XXXA Unspecified fall, initial encounter